=== PATIENT | male | born 1980 | race Caucasian/White ===

== ENCOUNTER 2016-07-10 20:53 | Emergency (ER) | payer OTHER ==
[2016-07-10 20:59] VITALS: BP 129/95; PULSE 78; TEMP 98; BMI 25.1
--- NOTE | 2016-07-10 22:25 | PDOC ---
History of Present Illness - General History Source: Patient - History of Present Illness Initial Comments: 07/10/16 23:19 The patient is a 36 year old male with no significant past medical history who presents to the emergency department with complaints of severe lower back pain radiating to right leg since few hours ago. Pt states that his back pain started when he was lifting an heavy object few hours ago. Pt states that the back pain gets worse on exertion. He denies any numbness, tingling, or weakness. Pt works in construction. He denies fever, chills, abdominal pain, nausea, vomiting, diarrhea, hematuria, dysuria, chest pain, SOB, palpitations, headache, dizziness. <Breanna Ugalde - Last Filed: 07/10/16 23:19> <Rosa Soliman - Last Filed: 07/11/16 06:49> - General Chief Complaint: Back Pain Stated Complaint: BACK PAIN Time Seen by Provider: 07/10/16 22:24 Past History <Breanna Ugalde - Last Filed: 07/10/16 23:19> - Past Medical History Other medical history: denies - Psycho/Social/Smoking Cessation Hx Anxiety: No Suicidal Ideation: No Smoking Status: No Smoking History: Current every day smoker Number of Cigarettes Smoked Daily: 20 Information on smoking cessation initiated: Yes 'Breaking Loose' booklet given: 07/10/16 <Rosa Soliman - Last Filed: 07/11/16 06:49> - Past Medical History Allergies/Adverse Reactions: Allergies Allergy/AdvReac Type Severity Reaction Status Date / Time No Known Allergies Allergy Verified 07/10/16 20:57 Home Medications: Ambulatory Orders No Home Medications 0 dose .ROUTE UTDICT 02/23/12 Review of Systems - Review of Systems Able to Perform ROS?: Yes Comments:: 07/10/16 23:20 GENERAL/CONSTITUTIONAL: No: fever, chills, weakness, loss of appetite. HEAD, EYES, EARS, NOSE AND THROAT: No: change in vision, ear pain, discharge, sore throat, throat swelling. CARDIOVASCULAR: No: chest pain, lightheadedness, palpitations, syncope RESPIRATORY: No: cough, shortness of breath, wheezing, hemoptysis, stridor. GASTROINTESTINAL: No: nausea, vomiting, abdominal cramping, diarrhea, rectal bleeding, constipation. GENITOURINARY: No: dysuria, hematuria, frequency, urgency, flank pain. MUSCULOSKELETAL: Yes: back pain, right leg pain No: neck pain, muscle swelling. SKIN AND BREASTS: No: lesions, pallor, rash or easy bruising. NEUROLOGIC: No: headache, vertigo, paresthesias, weakness ENDOCRINE: No: unexplained weight gain or loss HEMATOLOGIC/LYMPHATIC: No: anemia, easy bleeding, swelling nodes All Other Systems: Reviewed and Negative <Breanna Ugalde - Last Filed: 07/10/16 23:19> *Physical Exam - Vital Signs Last Vital Signs Temp Pulse Resp BP Pulse Ox 98 F 78 18 129/95 98 07/10/16 20:57 07/10/16 20:57 07/10/16 20:57 07/10/16 20:57 07/10/16 20:57 - Physical Exam Comments: 07/10/16 23:21 GENERAL: The patient is in no acute distress. HEAD: Normal with no signs of trauma. EYES: PERRLA, EOMI, sclera anicteric, conjunctiva clear. ENT: Ears normal, nares patent, oropharynx clear without exudates. Moist mucous membranes. NECK: Normal range of motion, supple without lymphadenopathy, JVD, or masses. LUNGS: Breath sounds equal, clear to auscultation bilaterally. No wheezes, and no crackles. HEART:Regular rate and rhythm, normal S1 and S2 without murmur, rub or gallop. ABDOMEN: Soft, nontender, normoactive bowel sounds. No guarding, no rebound. EXTREMITIES: Normal range of motion, no edema. No clubbing or cyanosis. No erythema, or tenderness. NEUROLOGICAL: Cranial nerves II through XII grossly intact. Normal speech. No focal neurological deficits. MUSCULOSKELETAL: +right leg and lower manager managed backup services to palpation. no CVA tenderness SKIN: Warm, Dry, normal turgor, no rashes or lesions noted. <Breanna Ugalde - Last Filed: 07/10/16 23:19> - Vital Signs Last Vital Signs Temp Pulse Resp BP Pulse Ox 98 F 78 18 129/95 98 07/10/16 20:57 07/10/16 20:57 07/10/16 20:57 07/10/16 20:57 07/10/16 20:57 <Rosa Soliman - Last Filed: 07/11/16 06:49> Medical Decision Making - Medical Decision Making 07/11/16 00:29 Patient Name: Shlomo Rajan THIS IS A PRELIMINARYREPORT FROM [facility] EXAM: CT lumbar spine without contrast IMAGES: 323 EXAM DATE AND TIME: 2016-07-10 23:33:13.0 REASON FOR EXAM: Right paraspinal pain COMPARISON: No FINDINGS: The lumbar vertebrae are normally aligned. No fracture or destructive bone lesions. Evaluation of the discs is limited because of image degradation from large body habitus. At L4-5 there is disc bulging. At L5-S1, there is degenerative disc thickening, vacuum phenomena, and disc bulging possibly with a herniated component but this would best be evaluated with MRI. No other appreciable abnormalities of the lumbar spine. THIS DOCUMENT HAS BEEN ELECTRONICALLY SIGNED 07/11/16 06:48 Pt injured his back. lumbar CT scan demonstrates disk bulging, and he was given a copy of the results and advised to get an MRI if the pain progresses. He is to take meds for the pain. FOllow with ortho/safety specialist. <Rosa Soliman - Last Filed: 07/11/16 06:49> *DC/Admit/Observation/Transfer - Attestations Scribe Attestion: 07/10/16 23:22 Documentation prepared by Breanna Ugalde, acting as auditor medical claims for Rosa Soliman MD. <Breanna Ugalde - Last Filed: 07/10/16 23:19> - Discharge Dispostion Admit: No <Rosa Soliman - Last Filed: 07/11/16 06:49> Diagnosis at time of Disposition: Sciatica - Discharge Dispostion Disposition: HOME Condition at time of disposition: Stable - Referrals Referrals: Fredo Medellin MD [Staff Physician] - - Patient Instructions Printed Discharge Instructions: DI for Sciatica - Post Discharge Activity Work/School Note: Back to Work
[2016-07-10] MEDS ORDERED: OXYCODONE/APAP 5/325MG COMBO TABLET PO ONE (23:01)
[2016-07-10] MEDS ORDERED: KETOROLAC TROMETHAMINE 30 MG/1 ML VIAL IVPUSH ONE (23:01)
[2016-07-10] MEDS ORDERED: OXYCODONE/APAP 5/325MG COMBO TABLET ONE (23:17)
[2016-07-10] MEDS ORDERED: KETOROLAC TROMETHAMINE 30 MG/1 ML VIAL ONE (23:17)
== END 2016-07-11 00:39 | disposition home or self-care (01) ==
LOC: JERFT 20:53 → JER 20:53
PROC: 3E0333Z Introduction of Anti-inflammatory into Peripheral Vein, Percutaneous Approach (ICD-10-PCS; principal; 2016-07-10)
DX: M54.41 Lumbago with sciatica, right side (principal); X50.0XXA Overexertion from strenuous movement or load, initial encounter; X50.9XXA Other and unspecified overexertion or strenuous movements or postures, initial encounter; Y93.89 Activity, other specified; Y92.89 Other specified places as the place of occurrence of the external cause; Y99.8 Other external cause status
CPT/HCPCS: 72131-TC; 96374; 99281-25

== ENCOUNTER 2023-03-07 20:59 | Emergency (ER) | payer OTHER ==
[2023-03-07 21:17] VITALS: BP 117/51; PULSE 76; RESP 18; TEMP 97.5; BMI 22.9
[2023-03-07] MEDS ORDERED: CLINDAMYCIN HCL 150 MG CAPSULE (FP) PO ONE (23:20)
[2023-03-07] MEDS ORDERED: CLINDAMYCIN HCL 150 MG CAPSULE (FP) ONE (23:23)
== END 2023-03-07 23:44 | disposition home or self-care (01) ==
LOC: JER 20:59
DX: S00.81XA Abrasion of other part of head, initial encounter (principal); T40.411A Poisoning by fentanyl or fentanyl analogs, accidental (unintentional), initial encounter; L03.116 Cellulitis of left lower limb; J34.89 Other specified disorders of nose and nasal sinuses; X58.XXXA Exposure to other specified factors, initial encounter
CPT/HCPCS: 70450-TC; 82962; 93005; 93010